=== PATIENT | male | born 1965 | race Caucasian/White ===

== ENCOUNTER 2020-09-14 16:24 | Emergency (ER) | payer OTHER ==
[~2020-09-14] VITALS: Ht 182.9 cm; Wt 77.1 kg
[2020-09-14 16:59] LABS: ABSOLUTE BASOPHILS 0.1 thou/uL (0.0-0.2); ABSOLUTE EOSINOPHILS 0.1 thou/uL (0.0-0.7); ABSOLUTE LYMPHOCYTES 2.4 thou/uL (0.8-5.3); ABSOLUTE MONOCYTES 0.4 thou/uL (0.0-1.2); ABSOLUTE NEUTROPHILS 8.9 thou/uL (1.6-8.1); BASOPHILS 0.7 %; EOSINOPHILS 1.1 %; HEMATOCRIT 44.6 % (42.0-52.0); LYMPHOCYTES 20.3 %; MCH 30.6 pg (26.0-34.0); MCHC 33.5 g/dL (28.0-37.0); MCV 91.4 fL (80.0-100.0); MONOCYTES 3.6 %; MPV 8.5 fl. (7.2-11.1); NUCLEATED RBCS 0 /100WBC; PLATELET COUNT* 272 thou/uL (150-400); POLYS 74.3 %; RBC 4.88 mil/uL (4.50-6.00)
[2020-09-14 17:12] LABS: CALCIUM 8.5 mg/dL (8.5-10.1); POTASSIUM 4.8 mmol/L (3.5-5.1)
[2020-09-14 17:16] LABS: ALBUMIN 3.9 g/dL (3.4-5.0); TOTAL BILIRUBIN 0.3 mg/dL (<0.1-1.0); TOTAL PROTEIN 7.3 g/dL (6.4-8.2)
[2020-09-14 18:17] VITALS: BP 139/84
--- NOTE | 2020-09-15 09:35 | EKG ---
[place] [address] ELECTROCARDIOGRAM REPORT Name: CARMEN LEWIS Room: [facility]#: [id number] Admission: 09/14/20 Attend Phys: Discharge: 09/14/20 Date of : 69 Date of Service: 09/14/20 1645 Report #: [id number] THIS REPORT FOR: //name// [facility] ED Test Date: 2020-09-14 Test Time: 16:45:02 Pat Name: CARMEN LEWIS Department: Room: Gender: Farm [employer]or: [facility] : 1965 Requested By: Jorge Antoine Order Number: [id number] MD: George Mary Measurements Intervals [place] Rate: 84 P: 23 DE: 166 QRS: 10 QRSD: 79 T: 51 QT: 364 QTc: 431 Interpretive Statements Sinus rhythm No previous ECG available for comparison Electronically Signed On 09-15-2020 9:34:59 CDT by George Mary [email or web address] <ELECTRONICALLY SIGNED> By: George Mary MD, [facility] 09/15/20 0934 1645 1645 George Mary MD, FACC /EPI
== END 2020-09-14 18:17 | disposition home or self-care (01) ==
LOC: M.ERS 16:24
PROVIDERS: Family Medicine
DX: S50.02XA Contusion of left elbow, initial encounter (principal); S00.03XA Contusion of scalp, initial encounter; F17.210 Nicotine dependence, cigarettes, uncomplicated; W86.8XXA Exposure to other electric current, initial encounter; Y93.89 Activity, other specified; Y92.89 Other specified places as the place of occurrence of the external cause; Y99.8 Other external cause status